=== PATIENT | male | born 1990 | race Hispanic/Latino ===

== ENCOUNTER 2024-03-17 19:51 | Observation (INO) | payer SELFPAY ==
[~2024-03-17] VITALS: Ht 180.3 cm; Wt 115.7 kg
[2024-03-17 20:51] LABS: BASOPHILS # (AUTO) 0.06 K/uL (0.00-0.20); EOSINOPHILS % (AUTO) 1.7 % (0.0-8.0); IMMATURE GRANULOCYTE ABSOLUTE 0.02 K/uL (0-1); LYMPHOCYTES # (AUTO) 2.1 K/uL (1.0-4.8); LYMPHOCYTES % (AUTO) 34.7 % (21.0-51.0); MEAN CORPUSCULAR HEMOGLOBIN 33.1 pg (27.0-33.0); MEAN CORPUSCULAR HGB CONC 39.1 g/dL (32.0-36.0); MEAN CORPUSCULAR VOLUME 84.6 fL (79-99); MONOCYTES # (AUTO) 0.5 K/uL (0.1-1.0); MONOCYTES % (AUTO) 8.1 % (3.0-13.0); NEUTROPHILS # (AUTO) 3.2 K/uL (1.8-7.7); NEUTROPHILS % (AUTO) 54.2 % (40.0-77.0); PLATELET COUNT (AUTO) 289 K/uL (130-400); RED CELL DISTRIBUTION WIDTH 12.9 % (11.0-15.5); WHITE BLOOD COUNT (AUTO) 5.9 K/uL (4.8-10.8)
[2024-03-17 21:03] LABS: APPEARANCE,URINE CLEAR (CLEAR); BILIRUBIN,URINE NEGATIVE (NEGATIVE); COLOR,URINE COLORLESS (YELLOW); GLUCOSE, URINE (UA) >=1000 mg/dL (NEGATIVE); KETONES,URINE NEGATIVE (NEGATIVE); LEUKOCYTE ESTERASE ,URINE NEGATIVE Leu/uL (NEGATIVE); NITRATE,URINE NEGATIVE (NEGATIVE); OCCULT BLOOD,URINE NEGATIVE (NEGATIVE); PH,URINE 5.5 (5.0-8.0); PROTEIN,URINE 50 mg/dL (NEGATIVE); UROBILINOGEN,URINE 0.2 mg/dL (0.2-1.0)
[2024-03-17 21:06] LABS: ADD UA MICROSCOPIC YES
[2024-03-17 21:07] LABS: SQUAMOUS EPITHELIAL CELL,UR RARE /HPF (0-2); YEAST,URINE BUDDING RARE /HPF (None Seen)
[2024-03-17 21:07] LABS: ALBUMIN 3.1 g/dL (3.5-5.0); BILIRUBIN,TOTAL 1.8 mg/dL (0.2-1.0); POTASSIUM 5.3 mmol/L (3.5-5.1)
[2024-03-17 21:32] LABS: CREATININE 0.7 mg/dL (0.5-1.3); TOTAL PROTEIN, SERUM 7.9 g/dL (6.0-8.3)
[2024-03-17] MEDS: ketOROlac 30MG VIAL (30MG/ML) IVP ONE (22:17)
[2024-03-17] MEDS: INSULIN humuLIN R 100 UNIT/ML 3ML IV ONE (22:17)
[2024-03-17] MEDS: 0.9%NACL 1000ML 1,000 ML IV ONE (22:18)
[2024-03-18] MEDS: 0.9%NACL 1000ML 1,000 ML IV SCH (00:56)
[2024-03-18] MEDS: INSULIN humuLIN R 100 UNIT/ML 3ML SQ SCH (00:58)
[2024-03-18] MEDS ORDERED: LACTULOSE 20 GM/30 ML UDCUP PO PRN (01:00)
[2024-03-18] MEDS ORDERED: ondanSETRON 4MG INJ IV PRN (01:00)
[2024-03-18] MEDS ORDERED: PoTASSium chloRIDE 20MEQ/100ML 100 ML IV PRN (01:00)
[2024-03-18] MEDS ORDERED: MAGNESIUM 2GM PREMIX 50ML 50 ML IV PRN (01:00)
[2024-03-18] MEDS ORDERED: GLUCAGON 1MG KIT 1 MG ML IM PRN (01:00)
[2024-03-18] MEDS ORDERED: DEXTROSE 50%-WATER 50 ML DISP.SYRIN IV PRN (01:00)
[2024-03-18 05:25] VITALS: BP 126/95; PULSE 104; RESP 20; TEMP 97.8
[2024-03-18 05:38] LABS: BASOPHILS # (AUTO) 0.05 K/uL (0.00-0.20); BASOPHILS % (AUTO) 0.9 % (0.0-5.0); EOSINOPHILS # (AUTO) 0.14 K/uL (0.00-0.70); EOSINOPHILS % (AUTO) 2.5 % (0.0-8.0); HEMATOCRIT 44.2 % (42-54); IMMATURE GRANULOCYTE ABSOLUTE 0.03 K/uL (0-1); LYMPHOCYTES # (AUTO) 1.6 K/uL (1.0-4.8); LYMPHOCYTES % (AUTO) 29.1 % (21.0-51.0); MEAN CORPUSCULAR HEMOGLOBIN 29.5 pg (27.0-33.0); MEAN CORPUSCULAR HGB CONC 34.4 g/dL (32.0-36.0); MEAN CORPUSCULAR VOLUME 85.7 fL (79-99); MONOCYTES # (AUTO) 0.5 K/uL (0.1-1.0); MONOCYTES % (AUTO) 8.3 % (3.0-13.0); NEUTROPHILS # (AUTO) 3.2 K/uL (1.8-7.7); NEUTROPHILS % (AUTO) 58.7 % (40.0-77.0); PLATELET COUNT (AUTO) 166 K/uL (130-400); RED BLOOD CELL COUNT(AUTO) 5.16 MIL/uL (4.50-6.20); RED CELL DISTRIBUTION WIDTH 12.7 % (11.0-15.5); WHITE BLOOD COUNT (AUTO) 5.5 K/uL (4.8-10.8)
[2024-03-18 06:04] LABS: ALBUMIN 3.1 g/dL (3.5-5.0); CREATININE 0.6 mg/dL (0.5-1.3); MAGNESIUM 1.8 mg/dL (1.80-2.40); POTASSIUM 3.6 mmol/L (3.5-5.1); THYROID STIMULATING HORMONE 1.84 uIU/mL (0.36-3.74); TOTAL PROTEIN, SERUM 6.8 g/dL (6.0-8.3)
[2024-03-18] MEDS: ketOROlac 15MG/ML VIAL (15MG/ML) IV PRN (06:44)
[2024-03-18] MEDS ORDERED: acetaMINOPHEN 325 MG TAB PO PRN ×2 (07:00)
[2024-03-18] MEDS ORDERED: ondanSETRON 4MG INJ IVP PRN (07:00)
[2024-03-18 07:45] VITALS: BP 123/84; PULSE 93; RESP 16; TEMP 98.6
[2024-03-18] MEDS: FAMOTIDINE 20MG VIAL IV SCH (09:45)
[2024-03-18 11:44] VITALS: BP 131/90; PULSE 88; RESP 18; TEMP 98.2
[2024-03-18 16:00] VITALS: BP 140/92; PULSE 85; RESP 18; TEMP 98.3
[2024-03-18] MEDS: FENOFIBRATE NANOCRYSTALLIZED 145 MG TAB PO SCH (17:07)
[2024-03-18 19:40] VITALS: O2SAT 98
[2024-03-18 20:28] VITALS: BP 145/95; PULSE 96; RESP 19; TEMP 98.5
[2024-03-18] MEDS: INSULIN GLARgine 100 UNITS/ML 10 ML VIAL SQ SCH (21:25)
[2024-03-19 00:01] VITALS: BP 140/88; PULSE 92; RESP 18; TEMP 98.3
[2024-03-19 04:24] VITALS: BP 132/90; PULSE 89; RESP 18; TEMP 98
[2024-03-19 04:29] LABS: BASOPHILS # (AUTO) 0.04 K/uL (0.00-0.20); BASOPHILS % (AUTO) 0.7 % (0.0-5.0); EOSINOPHILS # (AUTO) 0.14 K/uL (0.00-0.70); EOSINOPHILS % (AUTO) 2.6 % (0.0-8.0); HEMATOCRIT 40.6 % (42-54); IMMATURE GRANULOCYTE ABSOLUTE 0.02 K/uL (0-1); LYMPHOCYTES # (AUTO) 1.4 K/uL (1.0-4.8); MEAN CORPUSCULAR HEMOGLOBIN 29.6 pg (27.0-33.0); MEAN CORPUSCULAR HGB CONC 33.7 g/dL (32.0-36.0); MEAN CORPUSCULAR VOLUME 87.7 fL (79-99); MONOCYTES # (AUTO) 0.5 K/uL (0.1-1.0); MONOCYTES % (AUTO) 10.1 % (3.0-13.0); NEUTROPHILS # (AUTO) 3.2 K/uL (1.8-7.7); NEUTROPHILS % (AUTO) 60.2 % (40.0-77.0); PLATELET COUNT (AUTO) 165 K/uL (130-400); RED BLOOD CELL COUNT(AUTO) 4.63 MIL/uL (4.50-6.20); RED CELL DISTRIBUTION WIDTH 13.1 % (11.0-15.5); WHITE BLOOD COUNT (AUTO) 5.3 K/uL (4.8-10.8)
[2024-03-19 04:48] LABS: ALBUMIN 2.7 g/dL (3.5-5.0); BILIRUBIN,TOTAL 0.8 mg/dL (0.2-1.0); CREATININE 0.6 mg/dL (0.5-1.3); POTASSIUM 3.5 mmol/L (3.5-5.1)
[2024-03-19 07:47] VITALS: BP 134/85; PULSE 88; RESP 20; TEMP 98.3
[2024-03-19 08:10] VITALS: O2SAT 100
[2024-03-19 11:31] VITALS: BP 136/87; PULSE 87; RESP 20; TEMP 98.3
[2024-03-19] MEDS ORDERED: FENO145T PO (14:06)
[2024-03-19] MEDS ORDERED: METF-444 PO (14:15)
[2024-03-19] MEDS ORDERED: GLIM4TAB36 PO (14:15)
[2024-03-19] MEDS ORDERED: INSULIN humuLIN R 100 UNIT/ML 3ML SQ SCH (17:00)
[2024-03-20] MEDS ORDERED: INSULIN GLARgine 100 UNITS/ML 10 ML VIAL SQ SCH (09:00)
== END 2024-03-19 15:45 | disposition home or self-care (01) ==
LOC: EDH 19:51 → EDHIP 03-18 00:41 → INTOOBSV 03-18 00:41 → 4BH 03-18 04:58
PROVIDERS: ADMIT Internal Medicine; ATTEND Internal Medicine
DX: E11.65 Type 2 diabetes mellitus with hyperglycemia (principal); R79.89 Other specified abnormal findings of blood chemistry; E87.5 Hyperkalemia; E87.1 Hypo-osmolality and hyponatremia; K59.00 Constipation, unspecified; K76.0 Fatty (change of) liver, not elsewhere classified; I10 Essential (primary) hypertension; E78.1 Pure hyperglyceridemia; Z79.899 Other long term (current) drug therapy
CPT/HCPCS: 99285; 80053 ×3; 83690; 85025 ×3; 82010; 81001; 36415 ×3; 74176; 96374; 96375 ×2; 96376 ×2; 96372 ×6; 83036; 84443; 83735; 80061; 82948 ×12; 96361; J7030; J1885 ×2; J1815 ×7; J3490 ×3; G0378 ×3